=== PATIENT | female | born 1935 | race Caucasian/White ===

== ENCOUNTER 2016-08-24 11:35 | Emergency (ER) | payer MEDICARE, OTHER ==
[2016-08-24] MEDS ORDERED: Benzoin COMPOUND swab* 1 applicator pak TOPICAL ONE (13:21)
[2016-08-24] MEDS ORDERED: Benzoin Compound STICK ONE (13:55)
--- NOTE | 2016-08-24 14:00 | UC ---
Skin Complaint HPI - HPI Summary HPI Summary: fell last nigh has a skin tear on knee - History of Current Complaint Chief Complaint: UCSkin Time Seen by Provider: 08/24/16 13:10 Stated Complaint: KNEE LACERATION Hx Obtained From: Patient ?: No Onset/Duration: Sudden Onset, Lasting Days - 1, Still Present Skin Exposure Onset/Duration: Hours Ago - 18 Timing: Constant Onset Severity: Moderate Current Severity: Moderate Location: Discrete - left knee Aggravating: Nothing Alleviating: Nothing Associated Signs & Symptoms: Positive: Negative - Allergy/Home Medications Allergies/Adverse Reactions: Allergies Allergy/AdvReac Type Severity Reaction Status Date / Time Nabumetone [From Relafen] Allergy Intermediate Itching Verified 12/08/15 13:42 Review of Systems Constitutional: Negative Skin: Bruising - left knee, Other - 5 inch skin tear left knee, vertical linear Eyes: Negative ENT: Negative Respiratory: Negative Cardiovascular: Negative Gastrointestinal: Negative Genitourinary: Negative Motor: Negative Neurovascular: Negative Musculoskeletal: Negative Neurological: Negative Psychological: Negative All Other Systems Reviewed And Are Negative: Yes PMH/Surg Hx/FS Hx/Imm Hx Previously Healthy: No Endocrine History Of: Denies: Diabetes Cardiovascular History Of: Reports: Hypertension Respiratory History Of: Reports: Asthma - Surgical History Surgical History: Unable to Obtain/Confirm - Family History Known Family History: Positive: None Family History: no reported cardiovascular issues in family lineage - Social History Occupation: Retired Lives: With Family Alcohol Use: Weekly Alcohol Amount: 2-3 wek Substance Use Type: None Smoking Status (MU): Never Smoked Tobacco Physical Exam Triage Information Reviewed: Yes Appearance: Well-Appearing, No Pain Distress, Well-Nourished Vital Signs Reviewed: Yes Eye Exam: Normal Eyes: Positive: Conjunctiva Clear ENT Exam: Normal ENT: Positive: Normal ENT inspection, Hearing grossly normal. Negative: Nasal congestion, Nasal drainage, Trismus, Muffled/hoarse voice Dental Exam: Normal Neck exam: Normal Neck: Positive: Supple, Nontender, No Lymphadenopathy Respiratory Exam: Normal Respiratory: Positive: Chest non-tender, Lungs clear, Normal breath sounds, No respiratory distress, No accessory muscle use Cardiovascular Exam: Normal Cardiovascular: Positive: RRR, No Murmur, Pulses Normal, Brisk Capillary Refill Musculoskeletal Exam: Normal Neurological Exam: Normal Neurological: Positive: Alert, Muscle Tone Normal Psychological Exam: Normal Skin Exam: Normal Skin: Positive: Other - 5 inch linear vertical skin tear left knee Laceration Repair - Laceration Repair 1 Description: Linear Laceration Size After Repair: Length (cm) - 10, Width (mm) - 5, Depth (mm) - 2 Modified For Repair: No Cleansing Completed Via Routine Prep: Yes Irrigation With Pressure Irrigation Device: Yes Closure Material: SteriStrips Re-Evaluation - Re-Evaluation First Eval Change: Improved - wound well approximated with steri strips Course/Dx - Course Course Of Treatment: zachary, steri care follow with pcp, re-check bp - Differential Diagnoses - Skin Complaint Differential Diagnoses: Cellulitis, Other - contusion skin tear - Diagnoses Provider Diagnoses: , left knee contusion, repaired skin tear left knee, HTN with DX on treatment Discharge - Discharge Plan Condition: Stable Disposition: HOME Patient Education Materials: Contusion in Adults (ED), Steristrips (ED) Referrals: Kanika Graves MD [Primary Care Provider] - 1 Week
[2016-08-24 14:01] VITALS: BP 156/74
== END 2016-08-24 14:11 | disposition home or self-care (01) ==
LOC: UCEAST 11:35
DX: S81.012A Laceration without foreign body, left knee, initial encounter (principal); I10 Essential (primary) hypertension; J45.909 Unspecified asthma, uncomplicated; S80.02XA Contusion of left knee, initial encounter; W18.30XA Fall on same level, unspecified, initial encounter
CPT/HCPCS: 12002; 99201; G0463

== ENCOUNTER 2016-10-29 13:26 | Emergency (ER) | payer MEDICARE ==
[2016-10-29 13:54] VITALS: BP 141/75
--- NOTE | 2016-10-29 16:48 | UC ---
Adonay Bobo Benjamin, scribed for Lewis Cotto MD on 10/29/16 at 1620 . Lower Extremity/Ankle HPI - HPI Summary HPI Summary: 81yo female c/o bilateral swollen legs since September. Pt was put on diuretic 2-3 weeks ago, states that the med isnt working. Left is more swollen than the right. Pt has been having high fast HR lately for couple of weeks. Denies CP or SOB. - History of Current Complaint Chief Complaint: UCLowerExtremity Stated Complaint: BILAT LEG SWELLING Time Seen by Provider: 10/29/16 16:11 Hx Obtained From: Patient, Family/Band Salvager - Hx Last Menstrual Period: NA Onset/Duration: Gradual Onset, Lasting Weeks, Still Present Severity Initially: Mild Severity Currently: Mild Aggravating Factor(s): Nothing Alleviating Factor(s): Nothing Able to Bear Weight: Yes - Allergies/Home Medications Allergies/Adverse Reactions: Allergies Allergy/AdvReac Type Severity Reaction Status Date / Time Nabumetone [From Relafen] Allergy Intermediate Itching Verified 12/08/15 13:42 Rofecoxib [From Vioxx] Allergy See Comment Verified 08/30/16 11:33 Ramipril [From Altace] AdvReac Coughing Verified 08/30/16 11:33 PMH/Surg Hx/FS Hx/Imm Hx Previously Healthy: No Cardiovascular History: Cardiac Disease, Hypertension - Surgical History Surgical History: Yes Surgery Procedure, Year, and Place: knee replacement. CABG - Family History Known Family History: Positive: None Negative: Cardiac Disease, Hypertension Family History: no reported cardiovascular issues in family lineage - Social History Occupation: Retired Lives: With Family Alcohol Use: Weekly Alcohol Amount: 2-3 wek Substance Use Type: None Smoking Status (MU): Never Smoked Tobacco Review of Systems Constitutional: Negative Skin: Negative Eyes: Negative ENT: Negative Respiratory: Negative Cardiovascular: Palpitations - fast Gastrointestinal: Negative Genitourinary: Negative Motor: Negative Neurovascular: Negative Musculoskeletal: Negative, Edema - bilateral pedal edema Neurological: Negative Psychological: Negative All Other Systems Reviewed And Are Negative: Yes Physical Exam Triage Information Reviewed: Yes Appearance: Well-Appearing, No Pain Distress, Well-Nourished Vital Signs: Initial Vital Signs Temp 97.9 F 10/29/16 13:51 Pulse 108 10/29/16 13:51 Resp 18 10/29/16 13:51 BP 141/75 10/29/16 13:51 Pulse Ox 98 10/29/16 13:51 Vital Signs Reviewed: Yes Eyes: Positive: Conjunctiva Clear ENT: Positive: Normal ENT inspection, Hearing grossly normal Neck: Positive: Supple, Nontender Respiratory: Positive: Chest non-tender, Lungs clear, Normal breath sounds Cardiovascular: Positive: No Murmur, Tachycardia Musculoskeletal: Positive: Strength Intact, ROM Intact, Edema @ - bilateral pedal edema Neurological: Positive: Alert, Muscle Tone Normal Psychological: Positive: Age Appropriate Behavior Skin: Negative: rashes Diagnostics - EKG Cardiac Rate: Tachycardia - 99bpm Cardiac Rhythm: Sinus: Normal - sinus tachycardia, borderline T wave abnormalities, PACs Lower Extremity Course/Dx - Course Course Of Treatment: Reviewed medications list. NO U/S HERE IN CLINIC. DISCUSSED NEED FOR FURTHER IMMEDIATE EVALUATION. PATIENT DECLINES TRANSFER TO EMERGENCY DEPARTMENT BY AMBULANCE, WILL GO BY POV/AMA. - Differential Dx/Diagnosis Provider Diagnoses: LEFT LOWER LEG SWELLING, TACHYCARDIA Discharge - Discharge Plan Condition: Stable Disposition: AGAINST MEDICAL ADVICE Referrals: Kanika Graves MD [Primary Care Provider] - The documentation as recorded by the Adonay lemons Benjamin accurately reflects the service I personally performed and the decisions made by me, Lewis Cotto MD.
== END 2016-10-29 16:40 | disposition left against medical advice (07) ==
LOC: UCEAST 13:26
DX: M79.89 Other specified soft tissue disorders (principal); R00.0 Tachycardia, unspecified; I10 Essential (primary) hypertension; I25.10 Atherosclerotic heart disease of native coronary artery without angina pectoris; Z95.1 Presence of aortocoronary bypass graft; Z96.659 Presence of unspecified artificial knee joint
CPT/HCPCS: 93005; 99212; G0463

== ENCOUNTER 2016-10-29 17:08 | Emergency (ER) | payer MEDICARE ==
[2016-10-29 19:17] LABS: Hematocrit 40 % (35-47); Hemoglobin 13.2 g/dl (12.0-16.0); Mean Corpuscular HGB Conc 34 g/dl (31-36); Mean Corpuscular Hemoglobin 37 pg (27-31); Mean Platelet Volume 7 um3 (7.4-10.4); Red Blood Count 3.57 10^6/ul (4.0-5.4); Red Cell Distribution Width 13 % (10.5-15); White Blood Count 6.2 10^3/ul (3.5-10.8)
[2016-10-29 19:18] LABS: Comments Flag Yes; Mean Corpuscular Volume 111 fL (80-97)
[2016-10-29 19:24] LABS: Urine Bilirubin Negative (Negative); Urine Glucose Negative (Negative); Urine Nitrite Negative (Negative)
[2016-10-29 19:31] LABS: Albumin 4.4 g/dL (3.2-5.2); BUN/Creatinine Ratio 17.9 (8-20); C Reactive Protein 6.37 mg/L (< 5.00); Calcium 9.8 mg/dL (8.6-10.3); EGFR African American 109.2 (>60); EGFR Non-African American 84.9 (>60); Globulin 2.9 g/dL (2-4); Potassium 3.4 mmol/L (3.5-5.0); Total Bilirubin 0.7 mg/dL (0.2-1.0); Total Protein 7.3 g/dL (6.4-8.9)
[2016-10-29 19:32] LABS: Troponin I 0.01 ng/mL (<0.04)
[2016-10-29 19:33] LABS: Urine Bacteria Absent (Absent)
[2016-10-29 20:30] LABS: Erythrocyte Sed Rate 34 mm/Hr (0-40)
--- NOTE | 2016-10-29 20:35 | ED ---
Dari Bobo Alfonso, scribed for Raysa Cintron MD on 10/29/16 at 1837 . Complex/Multi-Sys Presentation - HPI Summary HPI Summary: This patient is a 81 year old F presenting referred from [facility] to [facility] accompanied by with a chief complaint of bilateral calf swelling since one month ago. Pt rates the pain 0/10 in severity. Symptoms aggravated by ambulation and alleviated by elevation. Pt reports LLE erythema, palpitations, and SOB on exertion. Pt states she was on a diuretic in early September, states "it didn't work". Also states she has had tachycardia. Pt denies CP. PMHx of HLD and HTN. - History Of Current Complaint Chief Complaint: EDExtremityLower Time Seen by Provider: 10/29/16 18:27 Hx Obtained From: Patient Onset/Duration: Sudden Onset, Lasting Weeks - 4-5 weeks (one month), Still Present Timing: Constant Severity Currently: Moderate Severity Initially: Moderate Location: Negative Aggravating Factor(s): Ambulation Alleviating Factor(s): Elevation Associated Signs And Symptoms: Positive: Edema, Other - Pt reports LLE erythema , palpitations, and SOB on exertion. Pt denies CP.. Negative: SOB, Chest Pain - Allergies/Home Medications Allergies/Adverse Reactions: Allergies Allergy/AdvReac Type Severity Reaction Status Date / Time Nabumetone [From Relafen] Allergy Intermediate Itching Verified 12/08/15 13:42 Rofecoxib [From Vioxx] Allergy See Comment Verified 08/30/16 11:33 Ramipril [From Altace] AdvReac Coughing Verified 08/30/16 11:33 PMH/Surg Hx/FS Hx/Imm Hx Previously Healthy: No Endocrine/Hematology History: Denies: Hx Diabetes Cardiovascular History: Reports: Hx Angina, Hx Hypercholesterolemia, Hx Hypertension Respiratory History: Reports: Hx Asthma - Surgical History Surgery Procedure, Year, and Place: knee replacement. CABG Infectious Disease History: Yes Infectious Disease History: Reports: Hx Shingles - ' Denies: History Other Infectious Disease, Traveled Outside the [place] in Last 30 Days - Family History Known Family History: Negative: Cardiac Disease, Hypertension Family History: no reported cardiovascular issues in family lineage - Social History Lives: With Family Alcohol Use: Weekly Alcohol Amount: 2-3 week Substance Use Type: Reports: None Smoking Status (MU): Never Smoked Tobacco Review of Systems Constitutional: Negative Positive: Palpitations, Other - tachycardia . Negative: Chest Pain Positive: Shortness Of Breath - on exertion Gastrointestinal: Negative Positive: Edema, Other - Bilateral calf swelling Positive: Other - LLE erythema Neurological: Negative Psychological: Normal All Other Systems Reviewed And Are Negative: Yes Physical Exam Triage Information Reviewed: Yes Vital Signs On Initial Exam: Initial Vitals Temp Pulse Resp BP Pulse Ox 98.4 F 104 20 159/98 96 10/29/16 17:27 10/29/16 17:27 10/29/16 17:27 10/29/16 17:27 10/29/16 17:27 Vital Signs Reviewed: Yes Appearance: Positive: No Pain Distress, Well-Nourished, Ill-Appearing Skin: Positive: Warm, Dry, Erythema @ - distal left ant tibia, pitting edema left greater than right, Other Head/Face: Positive: Normal Head/Face Inspection Eyes: Positive: Conjunctiva Clear ENT: Positive: Normal ENT inspection Neck: Positive: Supple Respiratory/Lung Sounds: Positive: Clear to Auscultation, Breath Sounds Present Cardiovascular: Positive: RRR. Negative: Murmur Abdomen Description: Positive: Nontender, No Organomegaly, Soft Bowel Sounds: Positive: Present Musculoskeletal: Positive: Edema Left, Edema Right, Other - 1+ RLE pitting edema. 3+ LLE pitting edema. Neurological: Positive: Sensory/Motor Intact, Alert, Oriented to Person Place, Time, CN Intact II-III, Speech Normal. Negative: Facial Droop, Focal Deficit @ , Slurred Speech Psychiatric: Positive: Normal - Bg Coma Scale Coma Scale Total: 15 Diagnostics - Vital Signs Vital Signs Temp Pulse Resp BP Pulse Ox 10/29/16 18:07 98.5 F 99 16 157/93 98 10/29/16 17:27 98.4 F 104 20 159/98 96 - Laboratory Result Diagrams: 10/29/16 19:00 10/29/16 19:00 Lab Statement: Any lab studies that have been ordered have been reviewed, and results considered in the medical decision making process. - Additional Comments Diagnostic Additional Comments: VL lower ext veins bilateral : Pending official radiologist interpretation. EKG: Pending. Complex Multi-Symp Course/Dx Assessment/Plan: 81 year old F presents to the ED with a CC of bilateral calf swelling since one month ago. Pt reports, LLE erythema, palpitations, and SOB on exertion. Pt denies CP. Patient will be followed up by Dr. Clay in the ED with labs and ultrasound pending. Allergies noted. High blood pressure noted. Pt medications reviewed this visit. - Diagnoses Differential Diagnoses/HQI/PQRI: Metabolic Abnormality, Other - CHF, cellulitis , DVT Provider Diagnoses: Pedal edema Discharge - Discharge Plan Condition: Stable Disposition: OTHER Discharge Disposition Comment: Pt is signed out to Dr. Clay, pending disposition, awaiting VL Lower ext Referrals: Kanika Graves MD [Primary Care Provider] - The documentation as recorded by the Dari lemons Alfonso accurately reflects the service I personally performed and the decisions made by , Raysa Cintron MD.
--- NOTE | 2016-10-29 22:06 | RAD ---
HISTORY: Bilateral lower extremity edema TECHNIQUE: Multiple transverse and longitudinal ultrasound images were obtained of the veins of the bilateral lower extremities using grayscale, color Doppler, and spectral Doppler imaging with and without compression and with augmentation. FINDINGS: VEINS: The common femoral vein, deep femoral vein, femoral vein and popliteal vein are compressible throughout their course, with normal flow on color Doppler imaging and normal response to augmentation on spectral Doppler imaging. The left great saphenous vein is not visualized consistent with the patient's reported history. SOFT TISSUES: There is a small amount of subcutaneous edema overlying the left lower leg. IMPRESSION: No sonographic evidence of deep vein thrombosis.
[2016-10-29 23:35] VITALS: BP 151/79
== END 2016-10-29 23:31 ==
LOC: ED 17:08
DX: R60.9 Edema, unspecified (principal); R00.2 Palpitations; R06.02 Shortness of breath; R00.0 Tachycardia, unspecified
CPT/HCPCS: 36415; 80053; 81003; 81015; 83605; 83880; 84484; 85025; 85610; 85652; 86140; 87086; 93005; 93970; 99282

== ENCOUNTER → 2018-11-06 06:37 | Day surgery (SDC) | payer MEDICARE ==
[~2018-11-06 06:37] MED LIST: Buffered Lidocaine 1% SYRIN* 1 ML/SYRINGE INTRADERM ONE; Bupivacaine 0.25% SDV* 30 ML ONE; Lactated Ringers 1000 ML Bag* 1,000 ML IV SCH; Lidocaine 2% PF * 5 ML VIAL ONE; Midazolam* 1 MG/ML 2 ML VIAL (2 MG) ONE; Naloxone* 0.4 MG/ML 1 ML VIAL IV PRN; Propofol* 10 MG/ML 20 ML BTL ONE; fentaNYL* 50 MCG/ML 2 ML VIAL (100 MCG VIAL) ONE
[2018-11-06 08:41] VITALS: BP 147/88
--- NOTE | 2018-11-06 10:17 | OP ---
DATE OF OPERATION: 11/06/18 [facility] DATE OF : 39 SURGEON: Samm Daniel MD. VP TREASURER: JADEN Coffey. ANESTHESIOLOGIST: Dr. Briggs. ANESTHESIA: Local MAC. PRE-OP DIAGNOSIS: Right carpal tunnel syndrome. POST-OP DIAGNOSIS: Right carpal tunnel syndrome. OPERATIVE PROCEDURE: Right open carpal tunnel release. INDICATIONS: Ana Luisa had severe carpal tunnel. We talked about risks and benefits, she wanted to proceed. ESTIMATED BLOOD LOSS: 2 mL. COMPLICATIONS: None. FINDINGS: See above and below. DESCRIPTION OF PROCEDURE: Ana Luisa was seen in the preoperative holding area. The correct site, side, and procedure were identified. We came back to the operating room. The arm was prepped and draped in the usual fashion and a time- out was performed. The arm was exsanguinated with the Esmarch and the tourniquet was inflated to 225 mmHg. I went ahead and made a longitudinal incision in the proximal palm about 2 to 3 cm, dissection was carried down through the subcutaneous tissue and palmar fascia. The transverse carpal ligament was released off the radial aspect of the hook of the hamate. The release was completed distally and then proximally. I released the subcutaneous tissue and retracted that out of the way and then released the remainder of the distal antebrachial fascia and transverse carpal ligament under direct visualization. The release was confirmed, everything was looking good. We irrigated out the wound. Skin was closed with 4-0 nylon suture. Soft dressings were applied, and she was taken to the recovery room in stable condition. [id number]/CPS #: [id number] [facility]
== END | disposition home or self-care (01) ==
LOC: OREAST 06:37
PROVIDERS: ATTEND Orthopaedic Surgery Hand Surgery
DX: G56.01 Carpal tunnel syndrome, right upper limb (principal); I10 Essential (primary) hypertension; J45.909 Unspecified asthma, uncomplicated; E78.00 Pure hypercholesterolemia, unspecified; M19.90 Unspecified osteoarthritis, unspecified site; K21.9 Gastro-esophageal reflux disease without esophagitis; Z95.1 Presence of aortocoronary bypass graft; I25.10 Atherosclerotic heart disease of native coronary artery without angina pectoris; M06.9 Rheumatoid arthritis, unspecified
CPT/HCPCS: J2250; J2704; J3010; J3490

== ENCOUNTER 2020-11-17 12:59 | Observation (INO) ==
[2020-11-17 13:41] LABS: ABS Lymphocytes 0.5 10^3/ul (1.0-4.8); ABS Monocytes 0.7 10^3/ul (0-0.8); ABS Neutrophils 4.8 10^3/ul (1.5-7.7); Eosinophil % 0.5 %; Hematocrit 31 % (35-47); Hemoglobin 10.8 g/dL (12.0-16.0); Lymphocyte % 8.8 %; Mean Corpuscular HGB Conc 34 g/dL (31-36); Mean Corpuscular Hemoglobin 36 pg (27-31); Mean Corpuscular Volume 106 fL (80-97); Mean Platelet Volume 6.7 fL (7.4-10.4); Nucleated Red Blood Cells % 0.1; Platelet Count 278 10^3/uL (150-450); Red Blood Count 2.97 10^6 /uL (3.70-4.87); Red Cell Distribution Width 14 % (10-15); White Blood Count 6.1 10^3/uL (3.5-10.8)
[2020-11-17 13:48] LABS: INR 1.24 (0.86-1.15)
[2020-11-17 13:59] LABS: Calcium 9.2 mg/dL (8.6-10.3); EGFR African American 107.2 (>60); EGFR Non-African American 88.6 (>60); Potassium 4.3 mmol/L (3.5-5.0); Troponin I 0.01 ng/mL (<0.03)
[2020-11-17] MEDS ORDERED: Iohexol 350 (CONTRAST) 500 ML MDV IV ONE (14:41)
[2020-11-17] MEDS ORDERED: Ondansetron 4 mg VIAL 2 MG/ML 2 ml VIAL IV PRN (17:29)
[2020-11-17] MEDS ORDERED: Albuterol HFA INHALER 8 gm MDI INH PRN (17:48)
[2020-11-17] MEDS: oxyCODONE/Acetamin 5/325 mg TAB PO PRN (17:58)
[2020-11-17 18:12] LABS: Albumin 3.5 g/dL (3.2-5.2); Direct Bilirubin 0.2 mg/dL (0.03-0.18); Globulin 3.4 g/dL (2-4); Indirect Bilirubin 0.4 mg/dL (0.3-1.0); Total Bilirubin 0.6 mg/dL (0.2-1.0); Total Protein 6.9 g/dL (6.4-8.9)
[2020-11-17 18:27] LABS: TSH Ultra Thyroid Stim Horm 1.02 mcIU/mL (0.34-5.60)
[2020-11-17 18:34] LABS: PCO2 Arterial 38 mmHg (35-45); PO2 Arterial 89 mmHg (80-100)
[2020-11-17] MEDS: Enoxaparin 40 MG/0.4 ML SYR SUBCUT SCH (22:26)
[2020-11-18 06:40] LABS: Hematocrit 28 % (35-47); Mean Corpuscular HGB Conc 35 g/dL (31-36); Mean Corpuscular Hemoglobin 37 pg (27-31); Mean Corpuscular Volume 104 fL (80-97); Platelet Count 234 10^3/uL (150-450); Red Blood Count 2.72 10^6 /uL (3.70-4.87); Red Cell Distribution Width 14 % (10-15); White Blood Count 4.8 10^3/uL (3.5-10.8)
[2020-11-18 06:46] LABS: INR 1.26 (0.86-1.15)
[2020-11-18 07:13] LABS: Calcium 8.9 mg/dL (8.6-10.3); EGFR African American 142.6 (>60); EGFR Non-African American 117.8 (>60); Potassium 4.4 mmol/L (3.5-5.0)
[2020-11-18] MEDS ORDERED: Regadenoson 0.4 MG/5 ML SYRINGE ONE (07:47)
[2020-11-18 08:18] LABS: ABS Eosinophils 0.1 10^3/ul (0-0.6); ABS Lymphocytes 0.5 10^3/ul (1.0-4.8); ABS Monocytes 0.7 10^3/ul (0-0.8); ABS Neutrophils 3.6 10^3/ul (1.5-7.7); Eosinophil % 1.2 %; Lymphocyte % 9.8 %
[2020-11-18] MEDS ORDERED: Aminophylline 25 MG/ML VIAL ONE (08:37)
[2020-11-18] MEDS: Aspirin EC 81 mg TAB.EC (enteric coated) PO SCH (09:59)
[2020-11-18] MEDS: oxyCODONE/Acetamin 5/325 mg TAB PO PRN ×2 (09:59→18:23)
[2020-11-18] MEDS: Enoxaparin 40 MG/0.4 ML SYR SUBCUT SCH (20:48)
[2020-11-19 06:17] LABS: Anion Gap 6 mmol/L (2-11); Blood Urea Nitrogen 14 mg/dL (6-24); CO2 Carbon Dioxide 31 mmol/L (22-32); Calcium 9.1 mg/dL (8.6-10.3); Chloride 98 mmol/L (101-111); EGFR African American 133.3 (>60); EGFR Non-African American 110.2 (>60); Glucose 103 mg/dL (70-100); Potassium 4.2 mmol/L (3.5-5.0); Sodium 135 mmol/L (135-145)
[2020-11-19 06:41] LABS: Folate > 20.00 ng/mL (5.90-24.80)
[2020-11-19 06:42] LABS: Vitamin B12 688 pg/mL (180-914)
[2020-11-19 08:05] VITALS: BP 146/65
[2020-11-19] MEDS: Aspirin EC 81 mg TAB.EC (enteric coated) PO SCH (08:47)
[2020-11-19] MEDS: oxyCODONE/Acetamin 5/325 mg TAB PO PRN (08:52)
== END 2020-11-19 13:00 | disposition home or self-care (01) | DRG 189 ==
LOC: ED 12:59 → MED 17:29 → INTOOBSV 17:29 → MED 20:22
PROVIDERS: ADMIT Hospitalist; ATTEND Hospitalist